=== PATIENT | male | born 1970 | race Caucasian/White ===

== ENCOUNTER 2016-12-28 08:00 | Inpatient (IN) ==
[2016-12-28 09:06] LABS: Bilirubin,Urine Small (Negative); Blood,Urine Trace (Negative); Clarity,Urine Clear (Clear); Color,Urine Dark Yellow (Yellow); Glucose,Urine (UA) Normal (Normal); Ketones,Urine 40 mg/dL (Negative); Leukocyte Esterase,Urine Negative (Negative); Nitrite,Urine Negative (Negative); PH,Urine 5.5 pH Units (5.0-8.0); Protein,Urine 30 mg/dL (Neg-Trace); Specific Gravity,Urine > 1.030 (1.010-1.025); Urobilinogen,Urine Normal (Normal)
[2016-12-28 09:08] LABS: Bacteria,Urine None Seen per hpf (None-Few); Hyaline Casts,Urine None Seen per lpf (None-Few); RBC,Urine 0-3 per hpf (0-3); Squamous Epithelial Cell,Urine Many per lpf (None-Few)
[2016-12-28 09:14] LABS: Amphetamine Screen,Urine Negative ng/mL (Cutoff=1000); Barbiturate Screen,Urine Negative ng/mL (Cutoff=200); Benzodiazepines Screen,Urine Negative ng/mL (Cutoff=200); Cannabinoid Screen,Urine Positive ng/mL (Cutoff = 50); Cocaine Screen,Urine Negative ng/mL (Cutoff= 300); Opiate Screen,Urine Negative ng/mL (Cutoff=300); Phencyclidine Screen,Urine Negative ng/mL (Cutoff=25)
[2016-12-28 09:22] LABS: Mucus,Urine Moderate (Few); Sperm,Urine Present
[2016-12-28 09:23] LABS: Basophils % 0.4 %; Eosinophils % 0.1 %; Hematocrit 46.4 % (37.5-50.1); Hemoglobin 15.6 g/dL (12.9-16.9); Immature Granulocytes % 0.5 % (0-4); Lymphocytes # 1.7 K/mcL (0.6-4.6); Lymphocytes % 15.5 %; Mean Corpuscular HGB Conc 33.6 g/dL (31.6-35.5); Mean Corpuscular Hemoglobin 30.2 pg (28.0-33.3); Mean Corpuscular Volume 89.7 fL (83.0-100.0); Mean Platelet Volume 10.4 fL (9.4-12.4); Monocytes # 0.7 K/mcL (0.0-1.3); Neutrophils # 8.6 K/mcL (1.6-8.9); Platelet Count 346 K/mcL (140-400); Red Blood Count 5.17 M/mcL (4.19-5.50); Red Cell Distribution Width 11.8 % (11.5-14.5); Segmented Neutrophils % 77.5 %
[2016-12-28 09:34] LABS: Alanine Aminotransferase 30 Units/L (0-55); Albumin 4.1 g/dL (3.5-5.0); Alkaline Phosphatase 100 Units/L (38-126); Aspartate Amino Transferase 22 Units/L (5-34); BUN/Creatinine Ratio 18 (6-26); Bilirubin,Direct 0.2 mg/dL (0.0-0.5); Bilirubin,Indirect 0.4 mg/dL (0.0-1.2); Bilirubin,Total 0.6 mg/dL (0.2-1.2); Blood Urea Nitrogen 17 mg/dL (8-26); Calcium 9.5 mg/dL (8.6-10.8); Carbon Dioxide 27 mEq/L (19-29); Chloride 101 mEq/L (98-109); Globulin 4.1 g/dL (2.4-3.5); Glucose 101 mg/dL (70-99); Osmolality,Calculated 288 (280-300); Potassium 4.4 mEq/L (3.5-4.5); Sodium 138 mEq/L (136-145); Total Protein 8.2 g/dL (6.0-8.3); eGFR For African Americans > 60 (> 60); eGFR For Non-African Americans > 60 (> 60)
[2016-12-28 09:42] LABS: Acetaminophen < 1.0 mcg/mL (10-30); Ethanol < 10 mg/dL (0-10); Salicylate < 5.0 mg/dL (15-30)
[2016-12-28] MEDS ORDERED: *HR* LORazepam 1 MG TABLET PO ONE (11:03)
--- NOTE | 2016-12-28 12:56 | Emergency Department Note ---
Disposition Clinical Impression: Acute anxiety, Paranoia Disposition: Admitted As Inpatient Condition: Fair Time of Disposition: 13:51 Psych HPI - General Chief Complaint: ED Psychiatric Symptoms Stated Complaint: Auditory / Visual Halucinations Time Seen by Provider: 12/28/16 08:49 Source: patient Mode of arrival: private vehicle Limitations: no limitations Nursing Notes Reviewed: Yes Vital Signs Reviewed: Yes - History of Present Illness HPI Narrative: 46-year-old male presents to the emergency department with paranoia, auditory and visual hallucinations. Patient states that he has been off his Xanax for approximately 4 days. Patient states that the remainder of his medication is in [facility]. Patient denies any recent head injury or trauma. Patient states that he feels as if people are watching him following him. He denies any current suicidal or homicidal ideation. He has no known drug allergies and denies any drug use. Pt complaint: altered mental status, anxiety Onset (ago): day(s) Duration: intermittent, getting worse Improves with: none Worsens with: none Alleged intoxication: No Associated Psychiatric Symptoms: auditory hallucinations, visual hallucinations , anxiety Associated symptoms: Reports: denies other symptoms Traumatic symptoms: denies traumatic injury Treatments prior to arrival: none Self harm or harm to others: denies thoughts of harming self/others, denies having a plan - Related Data Home Medications Medication Instructions Recorded Confirmed ALPRAZolam [Xanax 1 MG Tablet] 1 mg PO QID 12/28/16 12/28/16 Gabapentin [Neurontin] 800 mg PO TID 12/28/16 12/28/16 Quetiapine Fumarate [SEROquel] 100 - 200 mg PO HS 12/28/16 12/28/16 Sertraline [Zoloft] 100 mg PO DAILY 12/28/16 12/28/16 Allergies Allergy/AdvReac Type Severity Reaction Status Date / Time No Known Allergies Allergy Verified 01/19/15 13:30 All systems ED: reviewed and negative except as stated. Constitutional: Denies: fever, chills Cardiovascular: Denies: chest pain Respiratory: Denies: dyspnea Gastrointestinal: Denies: abdominal pain, nausea, vomiting Musculoskeletal: Denies: back pain, neck pain Integumentary: Denies: rash, abrasion, lesions Neurological: Denies: headache Psychiatric: Reports: anxiety, auditory hallucinations, visual hallucinations. Denies: depression, suicidal thoughts, homicidal thoughts Endocrine: Denies: fatigue Past Medical History - Past Medical History Attestation: Yes The following information was validated with the patient. Source: patient, nursing notes reviewed Medical history: Reports: no medical history Surgical history: Reports: cholecystectomy, orthopedic, other Psychiatric history: Reports: anxiety, depression - Social History Smoking Status: Smoker, status unknown Smokeless Tobacco Status: No Alcohol use: Reports: none, rarely Drug use: Reports: none Physical Exam - General Limitations: no limitations General appearance: alert, anxious - Head Head exam: atraumatic, normocephalic, normal inspection - Eye Eye exam: Present: normal appearance, PERRL - Neck Neck exam: Present: normal inspection, full ROM, trachea midline - Chest Chest inspection: Present: normal inspection, symmetric chest wall rise - Respiratory Respiratory exam: Present: normal lung sounds bilaterally. Absent: respiratory distress - Cardiovascular Cardiovascular exam: Present: regular rate, normal rhythm, normal heart sounds - Extremities Exam Extremities exam: Present: normal inspection, full ROM - Expanded Lower Extremity Exam Gait: observed and normal - Back Exam Back exam: Present: normal inspection, full ROM. Absent: tenderness - Neurological Exam Neurological exam: Present: alert, oriented X3 - Psychiatric Psychiatric exam: Present: anxious - Skin Skin exam: Present: warm, dry, intact, normal color Course Vital Signs Temperature 97.6 F 12/28/16 08:01 Pulse Rate 93 12/28/16 08:01 Respiratory Rate 20 12/28/16 08:01 Blood Pressure 123/79 12/28/16 08:01 O2 Sat by Pulse Oximetry 97 12/28/16 08:01 Temperature 97.6 F 12/28/16 08:01 Pulse Rate 66 12/28/16 18:48 Respiratory Rate 0 12/28/16 19:23 Blood Pressure 00/00 12/28/16 19:23 O2 Sat by Pulse Oximetry 96 12/28/16 18:48 Oxygen Delivery Oxygen Delivery Room Air Psych - Lab Data Lab results reviewed: Yes I reviewed the patient's lab results. Result diagrams: 12/28/16 09:15 12/28/16 09:15 Lab Results 12/28/16 12/28/16 12/28/16 Range/Units 08:30 08:30 09:15 WBC 11.1 (4.3-11.1) K/mcL RBC 5.17 (4.19-5.50) M/mcL Hgb 15.6 (12.9-16.9) g/dL Hct 46.4 (37.5-50.1) % MCV 89.7 (83.0-100.0) fL MCH 30.2 (28.0-33.3) pg MCHC 33.6 (31.6-35.5) g/dL RDW 11.8 (11.5-14.5) % Plt Count 346 (140-400) K/mcL MPV 10.4 (9.4-12.4) fL Immature Gran % 0.5 (0-4) % Seg Neutrophils % 77.5 % Lymphocytes % 15.5 % Monocytes % 6.0 % Eosinophils % 0.1 % Basophils % 0.4 % Neutrophils # 8.6 (1.6-8.9) K/mcL Lymphocytes # 1.7 (0.6-4.6) K/mcL Monocytes # 0.7 (0.0-1.3) K/mcL Eosinophils # 0.0 (0.0-0.6) K/mcL Basophils # 0.0 (0.0-0.2) K/mcL Sodium (136-145) mEq/L Potassium (3.5-4.5) mEq/L Chloride (98-109) mEq/L Carbon Dioxide (19-29) mEq/L BUN (8-26) mg/dL Creatinine (0.72-1.25) mg/dL Est GFR ( Amer) (> 60) Est GFR (Non-Af Amer) (> 60) BUN/Creatinine Ratio (6-26) Glucose (70-99) mg/dL Calculated Osmolality (280-300) Calcium (8.6-10.8) mg/dL Total Bilirubin (0.2-1.2) mg/dL Direct Bilirubin (0.0-0.5) mg/dL Indirect Bilirubin (0.0-1.2) mg/dL AST (5-34) Units/L ALT (0-55) Units/L Alkaline Phosphatase (38-126) Units/L Serum Total Protein (6.0-8.3) g/dL Albumin (3.5-5.0) g/dL Globulin (2.4-3.5) g/dL Albumin/Globulin Ratio (1.1-2.2) TSH (0.350-4.840) mcIU/mL Urine Color Dark Yellow (Yellow) Urine Clarity Clear (Clear) Urine pH 5.5 (5.0-8.0) pH Units Ur Specific [place] > 1.030 H (1.010-1.025) Urine Protein 30 H (Neg-Trace) mg/dL Urine Glucose (UA) Normal (Normal) mg/dL Urine Ketones 40 H (Negative) mg/dL Urine Blood Trace H (Negative) Urine Nitrite Negative (Negative) Urine Bilirubin Small H (Negative) Urine Urobilinogen Normal (Normal) mg/dL Ur Leukocyte Esterase Negative (Negative) Urine Microscopic RBC 0-3 (0-3) per hpf Urine Microscopic WBC 3-5 H (0-3) per hpf Ur Squamous Epith Cells Many H (None-Few) per lpf Urine Bacteria None Seen (None-Few) per hpf Hyaline Casts None Seen (None-Few) per lpf Urine Mucus Moderate H (Few) Urine Sperm Present Salicylates (15-30) mg/dL Urine Opiates Screen Negative (Xfggre=722) ng/mL Acetaminophen (10-30) mcg/mL Ur Barbiturates Screen Negative (Odofzh=805) ng/mL Ur Phencyclidine Scrn Negative (Cutoff=25) ng/mL Ur Amphetamines Screen Negative (Eabkub=9865) ng/mL U Benzodiazepines Scrn Negative (Mexvwg=235) ng/mL Urine Cocaine Screen Negative (Cutoff= 300) ng/mL U Marijuana (THC) Screen Positive H (Cutoff = 50) ng/mL Ethyl Alcohol (0-10) mg/dL 12/28/16 Range/Units 09:15 WBC (4.3-11.1) K/mcL RBC (4.19-5.50) M/mcL Hgb (12.9-16.9) g/dL Hct (37.5-50.1) % MCV (83.0-100.0) fL MCH (28.0-33.3) pg MCHC (31.6-35.5) g/dL RDW (11.5-14.5) % Plt Count (140-400) K/mcL MPV (9.4-12.4) fL Immature Gran % (0-4) % Seg Neutrophils % % Lymphocytes % % Monocytes % % Eosinophils % % Basophils % % Neutrophils # (1.6-8.9) K/mcL Lymphocytes # (0.6-4.6) K/mcL Monocytes # (0.0-1.3) K/mcL Eosinophils # (0.0-0.6) K/mcL Basophils # (0.0-0.2) K/mcL Sodium 138 (136-145) mEq/L Potassium 4.4 (3.5-4.5) mEq/L Chloride 101 (98-109) mEq/L Carbon Dioxide 27 (19-29) mEq/L BUN 17 (8-26) mg/dL Creatinine 0.95 (0.72-1.25) mg/dL Est GFR ( Amer) > 60 (> 60) Est GFR (Non-Af Amer) > 60 (> 60) BUN/Creatinine Ratio 18 (6-26) Glucose 101 H (70-99) mg/dL Calculated Osmolality 288 (280-300) Calcium 9.5 (8.6-10.8) mg/dL Total Bilirubin 0.6 (0.2-1.2) mg/dL Direct Bilirubin 0.2 (0.0-0.5) mg/dL Indirect Bilirubin 0.4 (0.0-1.2) mg/dL AST 22 (5-34) Units/L ALT 30 (0-55) Units/L Alkaline Phosphatase 100 (38-126) Units/L Serum Total Protein 8.2 (6.0-8.3) g/dL Albumin 4.1 (3.5-5.0) g/dL Globulin 4.1 H (2.4-3.5) g/dL Albumin/Globulin Ratio 1.0 L (1.1-2.2) TSH 1.580 (0.350-4.840) mcIU/mL Urine Color (Yellow) Urine Clarity (Clear) Urine pH (5.0-8.0) pH Units Ur Specific [place] (1.010-1.025) Urine Protein (Neg-Trace) mg/dL Urine Glucose (UA) (Normal) mg/dL Urine Ketones (Negative) mg/dL Urine Blood (Negative) Urine Nitrite (Negative) Urine Bilirubin (Negative) Urine Urobilinogen (Normal) mg/dL Ur Leukocyte Esterase (Negative) Urine Microscopic RBC (0-3) per hpf Urine Microscopic WBC (0-3) per hpf Ur Squamous Epith Cells (None-Few) per lpf Urine Bacteria (None-Few) per hpf Hyaline Casts (None-Few) per lpf Urine Mucus (Few) Urine Sperm Salicylates < 5.0 L (15-30) mg/dL Urine Opiates Screen (Clgbov=067) ng/mL Acetaminophen < 1.0 L (10-30) mcg/mL Ur Barbiturates Screen (Zpdvvr=570) ng/mL Ur Phencyclidine Scrn (Cutoff=25) ng/mL Ur Amphetamines Screen (Jbkuxh=3694) ng/mL U Benzodiazepines Scrn (Fredua=542) ng/mL Urine Cocaine Screen (Cutoff= 300) ng/mL U Marijuana (THC) Screen (Cutoff = 50) ng/mL Ethyl Alcohol < 10 (0-10) mg/dL Psychiatric Medical Clearance - Medical Clearance Checklist Medical History: No Social History Section defined Current Vitals: Last Vital Signs Temp 97.6 F 12/28/16 08:01 Pulse 66 12/28/16 18:48 Resp 0 12/28/16 19:23 BP 00/00 12/28/16 19:23 Pulse Ox 96 12/28/16 18:48 Psychiatric Lab Panel: Drug Levels and Toxicity 12/28/16 12/28/16 08:30 09:15 Urine Opiates Screen Negative Acetaminophen < 1.0 L Ur Barbiturates Screen Negative Ur Phencyclidine Scrn Negative Ur Amphetamines Screen Negative U Benzodiazepines Scrn Negative Urine Cocaine Screen Negative U Marijuana (THC) Screen Positive H Ethyl Alcohol < 10 Abnormal Labs: Abnormal lab results Glucose 101 mg/dL (70-99) H 12/28/16 09:15 Globulin 4.1 g/dL (2.4-3.5) H 12/28/16 09:15 Albumin/Globulin Ratio 1.0 (1.1-2.2) L 12/28/16 09:15 Ur Specific [place] > 1.030 (1.010-1.025) H 12/28/16 08:30 Urine Protein 30 mg/dL (Neg-Trace) H 12/28/16 08:30 Urine Ketones 40 mg/dL (Negative) H 12/28/16 08:30 Urine Blood Trace (Negative) H 12/28/16 08:30 Urine Bilirubin Small (Negative) H 12/28/16 08:30 Urine Microscopic WBC 3-5 per hpf (0-3) H 12/28/16 08:30 Ur Squamous Epith Cells Many per lpf (None-Few) H 12/28/16 08:30 Urine Mucus Moderate (Few) H 12/28/16 08:30 Salicylates < 5.0 mg/dL (15-30) L 12/28/16 09:15 Acetaminophen < 1.0 mcg/mL (10-30) L 12/28/16 09:15 U Marijuana (THC) Screen Positive ng/mL (Cutoff = 50) H 12/28/16 08:30 Attestation Statement - Attestation Attestation: I, Haris Person, examined this patient and my medical decision-making was reviewed with the [employer]/PA/Advanced Practice Nurse/Resident Physician. I agree with the documented findings, disposition and treatment plan as described except to the extent set forth below. 46-year-old male seen in the emergency department for auditory or visual hallucinations. Patient states he regularly travels to [place] for work and has left his benzodiazepine prescription in [place]. Family member states the patient started having hallucinations the day he came back from [place]. He denies fever, chills, nausea, vomiting, chest pain, headache. Patient was medically cleared and seen by behavioral health who recommended he be admitted to the hospital for further care and evaluation. Patient is comfortable with this plan.
[2016-12-28] MEDS ORDERED: ALPRAZolam 0.5 MG TABLET PO ONE ×2 (13:55→18:41)
[2016-12-28] MEDS ORDERED: *HR* LORazepam 2 MG/ML VIAL IM PRN (19:59)
[2016-12-28] MEDS ORDERED: hydrOXYzine pamoate 25 MG CAPSULE PO PRN (19:59)
[2016-12-28] MEDS ORDERED: Acetaminophen 325 MG TABLET PO PRN (19:59)
[2016-12-28] MEDS ORDERED: MOM Conc 10 ML UD.LIQ PO PRN (19:59)
[2016-12-28] MEDS ORDERED: Haloperidol Lactate 5 MG/ML VIAL IM PRN (19:59)
[2016-12-28] MEDS ORDERED: Mag Hydrox/Al Hydrox/Simeth 30 ML UDC PO PRN (19:59)
[2016-12-28] MEDS ORDERED: *HR* LORazepam 1 MG TABLET PO PRN (19:59)
[2016-12-28] MEDS ORDERED: traZODone 50 MG TABLET PO PRN (21:00)
[2016-12-28] MEDS: Gabapentin 400 MG CAPSULE PO SCH (22:17)
[2016-12-28] MEDS: clonazePAM 0.5 MG TABLET PO PRN (22:17)
[2016-12-29] MEDS: clonazePAM 0.5 MG TABLET PO PRN (08:33)
[2016-12-29] MEDS: Gabapentin 400 MG CAPSULE PO SCH ×3 (08:33→20:04)
--- NOTE | 2016-12-29 12:05 | Psychiatry History & Physical ---
Date of Encounter: 12/29/16 Time of Encounter: 11:40 History of Present Illness Patient Stated Chief Complaint: i just need my medicine and i am fine. Medicare Admission Attestation: For traditional Medicare patients the provided hospital inpatient services are reasonable and necessary and in the case of services not specified as inpatient -only under 42 CFR 419.22 (n), that they are appropriately provided as inpatient services in accordance 42 CFR 412.3. For Critical Access Hospital the patient may reasonably be expected to be discharged or transferred to a hospital within 96 hours after admission to the Critical Access Hospital. History of Present Illness: Mr. Dos Santos is a 46 year old male who came to ER with his after having brief episode of paranoia , aud/visual hallicunation. He has h/o Major Depressive Disorder and PTSD. he admits he has been withdrawing from xanax as left his bottle in [place] where he was for work , he states he takes xanax as prescribed and has not abused it, last taken was 4 days ago . states he has not taken zoloft for 1-2 months , it made me feel tired and not good. he also stopped seroquel as he feels that he took extra seroquel and it made him feel psychotic , he does not want to take zoloft or seroquel , he refused this morning. he is irritable initially today during session but then calmed down and was able to give history , states i am not going to hurt myself/others and i just need my medicine . i only want xanax and gabapentin, they help me the most. i reviewed note from out patient he was seen on 10/13/16 by [email or web address] Zeng. as per note he has states he has used more xanax upto 5 some days for anxiety. he has marital stress , his left him after 29 yrs for other person and she came back 2 weeks now and he took her back. he admits he has some anger , sad at times , he was tearful during session, denies any suicidal ideation , no thoughts to hurt others. denies any psychosis, no manic s/s, he has generalized anxiety and has h/o panic attacks. as per him he has been on xanax for 12 years now and also on zoloft for 10 years , now has side effects from zoloft. he agreed to take other antidepressant . Past Med Surg Social Fam HX - Past Medical History Medical history: no medical history - Past Surgical History Surgical History: cholecystectomy, orthopedic, other - Social History Smoking Status: Current every day smoker Smokeless Tobacco Status: No Alcohol use: none, rarely Drug use: none Occupational status: employed Current living situation: Home, With Family Activity Level: Independent ambulation Recent Out of Country Travel Within the Last 8 Weeks: No Exposure or Possible Exposure to Illness During Travel: No - Family History Mother Hx Family Medical Disorders: No Father Hx Family Cardiac Disorders: Yes ([place]) Medications & Allergies ALPRAZolam [Xanax 1 MG Tablet] 1 mg PO QID 12/28/16 [History] Gabapentin [Neurontin] 800 mg PO TID 12/28/16 [History] Quetiapine Fumarate [SEROquel] 100 - 200 mg PO HS 12/28/16 [History] Sertraline [Zoloft] 100 mg PO DAILY 12/28/16 [History] Allergies No Known Allergies Allergy (Verified 01/19/15 13:30) Review of Systems Constitutional: Denies: fever, chills, weakness, weight change Eyes: Denies: eye pain, vision change Ears, Nose, Throat: Denies: ear pain, throat pain, dental pain, hearing loss, congestion Cardiovascular: Denies: chest pain, palpitations, dyspnea on exertion Respiratory: Denies: cough, dyspnea, wheezes Gastrointestinal: Denies: abdominal pain, nausea, vomiting, diarrhea, constipation Genitourinary male: Denies: urgency, dysuria, frequency, genital lesions Genitourinary female: Denies: urgency, dysuria, frequency, abnormal menses, dyspareunia Musculoskeletal: Denies: joint swelling, joint pain Integumentary: Denies: rash, lesions, pruritus Neurological: Denies: headache, weakness, numbness, memory loss Psychiatric: Reports: depression, anxiety, panic attacks Endocrine: Denies: fatigue, heat or cold intolerance Hematologic/Lymphatic: Denies: easy bruising, lymphadenopathy Allergic/Immunologic: Denies: urticaria, itchy eyes Mental Status Exam Patient orientation: Yes Person, Yes Time, Yes Place Level of alertness: Alert Patient appearance: Appropriate Behavior: cooperative Psychomotor activity: Increased (was first irritable , then became calm and cooperative.) Eye contact: Maintains Eye Contact Mood description: Anxious, Irritable Affect description: congruent with mood Speech pattern: Normal rate Speech volume: Normal Thought process: Intact Thought content: Yes Intact Attention span: Capable of Focused Attention Patient reliability: Reliable Historian Intelligence estimate: Average Judgment: Fair Insight: Partial Exam - HEENT Head exam IM: Present: atraumatic, normal inspection, normocephalic Eye exam IM: Present: normal appearance ENT exam IM: Present: normal exam - Neurological Neurological exam IM: Present: alert, CN II-XII intact, normal gait, oriented X3 , no focal deficits - Skin Skin exam IM: Present: dry, warm Results - Vital Signs Vital signs: Temp Pulse Resp BP Pulse Ox 98.3 F 74 16 121/84 96 12/29/16 09:00 12/29/16 09:00 12/29/16 09:00 12/29/16 09:00 12/28/16 18:48 - Labs Labs: Laboratory Last Values WBC 11.1 K/mcL (4.3-11.1) 12/28/16 09:15 RBC 5.17 M/mcL (4.19-5.50) 12/28/16 09:15 Hgb 15.6 g/dL (12.9-16.9) 12/28/16 09:15 Hct 46.4 % (37.5-50.1) 12/28/16 09:15 MCV 89.7 fL (83.0-100.0) 12/28/16 09:15 MCH 30.2 pg (28.0-33.3) 12/28/16 09:15 MCHC 33.6 g/dL (31.6-35.5) 12/28/16 09:15 RDW 11.8 % (11.5-14.5) 12/28/16 09:15 Plt Count 346 K/mcL (140-400) 12/28/16 09:15 MPV 10.4 fL (9.4-12.4) 12/28/16 09:15 Immature Gran % 0.5 % (0-4) 12/28/16 09:15 Seg Neutrophils % 77.5 % 12/28/16 09:15 Lymphocytes % 15.5 % 12/28/16 09:15 Monocytes % 6.0 % 12/28/16 09:15 Eosinophils % 0.1 % 12/28/16 09:15 Basophils % 0.4 % 12/28/16 09:15 Neutrophils # 8.6 K/mcL (1.6-8.9) 12/28/16 09:15 Lymphocytes # 1.7 K/mcL (0.6-4.6) 12/28/16 09:15 Monocytes # 0.7 K/mcL (0.0-1.3) 12/28/16 09:15 Eosinophils # 0.0 K/mcL (0.0-0.6) 12/28/16 09:15 Basophils # 0.0 K/mcL (0.0-0.2) 12/28/16 09:15 Sodium 138 mEq/L (136-145) 12/28/16 09:15 Potassium 4.4 mEq/L (3.5-4.5) 12/28/16 09:15 Chloride 101 mEq/L (98-109) 12/28/16 09:15 Carbon Dioxide 27 mEq/L (19-29) 12/28/16 09:15 BUN 17 mg/dL (8-26) 12/28/16 09:15 Creatinine 0.95 mg/dL (0.72-1.25) 12/28/16 09:15 Est GFR ( Amer) > 60 (> 60) 12/28/16 09:15 Est GFR (Non-Af Amer) > 60 (> 60) 12/28/16 09:15 BUN/Creatinine Ratio 18 (6-26) 12/28/16 09:15 Glucose 101 mg/dL (70-99) H 12/28/16 09:15 Calculated Osmolality 288 (280-300) 12/28/16 09:15 Calcium 9.5 mg/dL (8.6-10.8) 12/28/16 09:15 Total Bilirubin 0.6 mg/dL (0.2-1.2) 12/28/16 09:15 Direct Bilirubin 0.2 mg/dL (0.0-0.5) 12/28/16 09:15 Indirect Bilirubin 0.4 mg/dL (0.0-1.2) 12/28/16 09:15 AST 22 Units/L (5-34) 12/28/16 09:15 ALT 30 Units/L (0-55) 12/28/16 09:15 Alkaline Phosphatase 100 Units/L (38-126) 12/28/16 09:15 Serum Total Protein 8.2 g/dL (6.0-8.3) 12/28/16 09:15 Albumin 4.1 g/dL (3.5-5.0) 12/28/16 09:15 Globulin 4.1 g/dL (2.4-3.5) H 12/28/16 09:15 Albumin/Globulin Ratio 1.0 (1.1-2.2) L 12/28/16 09:15 TSH 1.580 mcIU/mL (0.350-4.840) 12/28/16 09:15 Urine Color Dark Yellow (Yellow) 12/28/16 08:30 Urine Clarity Clear (Clear) 12/28/16 08:30 Urine pH 5.5 pH Units (5.0-8.0) 12/28/16 08:30 Ur Specific [place] > 1.030 (1.010-1.025) H 12/28/16 08:30 Urine Protein 30 mg/dL (Neg-Trace) H 12/28/16 08:30 Urine Glucose (UA) Normal mg/dL (Normal) 12/28/16 08:30 Urine Ketones 40 mg/dL (Negative) H 12/28/16 08:30 Urine Blood Trace (Negative) H 12/28/16 08:30 Urine Nitrite Negative (Negative) 12/28/16 08:30 Urine Bilirubin Small (Negative) H 12/28/16 08:30 Urine Urobilinogen Normal mg/dL (Normal) 12/28/16 08:30 Ur Leukocyte Esterase Negative (Negative) 12/28/16 08:30 Urine Microscopic RBC 0-3 per hpf (0-3) 12/28/16 08:30 Urine Microscopic WBC 3-5 per hpf (0-3) H 12/28/16 08:30 Ur Squamous Epith Cells Many per lpf (None-Few) H 12/28/16 08:30 Urine Bacteria None Seen per hpf (None-Few) 12/28/16 08:30 Hyaline Casts None Seen per lpf (None-Few) 12/28/16 08:30 Urine Mucus Moderate (Few) H 12/28/16 08:30 Urine Sperm Present 12/28/16 08:30 Salicylates < 5.0 mg/dL (15-30) L 12/28/16 09:15 Urine Opiates Screen Negative ng/mL (Uoosic=610) 12/28/16 08:30 Acetaminophen < 1.0 mcg/mL (10-30) L 12/28/16 09:15 Ur Barbiturates Screen Negative ng/mL (Zbzirl=671) 12/28/16 08:30 Ur Phencyclidine Scrn Negative ng/mL (Cutoff=25) 12/28/16 08:30 Ur Amphetamines Screen Negative ng/mL (Ykdwga=9058) 12/28/16 08:30 U Benzodiazepines Scrn Negative ng/mL (Wjiqtw=728) 12/28/16 08:30 Urine Cocaine Screen Negative ng/mL (Cutoff= 300) 12/28/16 08:30 U Marijuana (THC) Screen Positive ng/mL (Cutoff = 50) H 12/28/16 08:30 Ethyl Alcohol < 10 mg/dL (0-10) 12/28/16 09:15 Assessment and Plan (1) Major depression Current visit: Yes Status: Acute Plan: Admit inpatient for safety and stabilization, Close observation, Encourage participation in unit milieu, Group Therapy, Monitor sleep, Monitor appetite, Family/Supportive other meeting Risks, benefits, side effects, alternatives discussed w/pt: Yes Patient agreeable to treatment: Yes Plans for Post Hospital Care: Home Qualifiers: Major depression recurrence: recurrent Active/Remission status: currently active Major depression episode severity: moderate Qualified Code(s): F33.1 - Major depressive disorder, recurrent, moderate (2) Generalized anxiety disorder Current visit: Yes Status: Chronic Plan: Close observation, Encourage participation in unit milieu, Group Therapy, Monitor appetite Risks, benefits, side effects, alternatives discussed w/pt: Yes Patient agreeable to treatment: Yes Plans for Post Hospital Care: Home (3) Panic disorder Current visit: Yes Status: Acute Plan: Admit inpatient for safety and stabilization, Close observation, Encourage participation in unit milieu, Group Therapy, Monitor sleep, Monitor appetite, Family/Supportive other meeting Risks, benefits, side effects, alternatives discussed w/pt: Yes Patient agreeable to treatment: Yes Plans for Post Hospital Care: Home (will incease klonopin to 1 mg tid , xanax dc.)
[2016-12-29] MEDS: clonazePAM 1 MG TABLET PO SCH ×2 (15:13→20:04)
[2016-12-30] MEDS: clonazePAM 1 MG TABLET PO SCH (08:37)
[2016-12-30] MEDS: Gabapentin 400 MG CAPSULE PO SCH (08:37)
--- NOTE | 2016-12-30 08:46 | Discharge Summary ---
Date of Encounter: 12/30/16 Time of Encounter: 08:41 Diagnosis - Discharge Diagnosis (1) Major depression Status: Acute Qualifiers: Major depression recurrence: recurrent Active/Remission status: currently active Major depression episode severity: moderate Qualified Code(s): F33.1 - Major depressive disorder, recurrent, moderate (2) Generalized anxiety disorder Status: Chronic (3) Panic disorder Status: Acute Medications - Discharge Medications Prescriptions: clonazePAM [Klonopin] 1 mg PO TID #60 tab DULoxetine [Cymbalta] 30 mg PO DAILY #30 Gabapentin [Neurontin] 800 mg PO TID #90 DULoxetine [Cymbalta] 30 mg PO DAILY #30 12/30/16 [Rx] Gabapentin [Neurontin] 800 mg PO TID #90 12/30/16 [Rx] clonazePAM [Klonopin] 1 mg PO TID #60 tab 12/30/16 [Rx] Allergies No Known Allergies Allergy (Verified 01/19/15 13:30) Provider Date of admission: 12/28/16 19:17 Primary care physician: PCP NONE Assessment and Plan - Patient/Caregiver Discharge Instructions Diet: regular diet - Follow up Plan Follow up with: [facility] [Outside] - 01/13/17 1:30 pm (The above appointment is with Soniya Garay, for outpatient psychiatric assessment and medication management services. Please arrive 10 minutes early to all appointments to complete the check-in process. Please bring your insurance card (or [facility]) and photo ID. If you are unable to keep this appointment, 24 hour business notice of cancellation is expected. The above appointment(s) reflects first availability. You may contact the office regularly to check for cancellations that may allow you to be seen sooner. ) Overall status at discharge: Stable Disposition: Home, Self-Care Hospital Course Hospital course: Mr. Dos Santos is a 46 year old male who presented to ER with his as he had been off xanax for 4 days takes 4-5 mg / day as left in hotel his bottle , he took extra seroquel and apparently had hallucinations and severe anxiety , he had no suicidal ideas or thoughts to hurt others. He is compliant with treatment plan and during his course of treatment he agreed to be switched to klonopin and cymbalta , as he has stopped zoloft and seroquel and does not want to take them because of side effects. at present on discharge no psychosis, no manic, no depression , some anxiety and preoccupied with not missing more work. pt will be dc home , will call pharmacy and dc prescription of xanax as changed to klonopin . he has appointment on 01/13/17 with [facility] . - Time Spent with Patient Total time spent providing and/or coordinating discharge services: Quality - Multiple Antipsychotics Patient discharged on 2 or more antipsychotic medications: No Procedures - Procedures Procedures: Medication Management, Crisis Stabilization, Supportive Therapy, Group Therapy, Psychoeducational Therapy Mental Status Exam - Mental Status Exam Patient orientation: Yes Person, Yes Time, Yes Place Level of alertness: Alert Patient appearance: Appropriate Behavior: cooperative Psychomotor activity: Normal Eye contact: Maintains Eye Contact Mood description: Euthymic/stable Affect description: congruent with mood Speech pattern: Normal rate Speech Volume: Normal Thought process: Intact Thought Content: Yes Intact Judgment: Good Insight: Full
[2016-12-30 10:05] VITALS: BP 119/77
== END 2016-12-30 10:36 | disposition home or self-care (01) | DRG 751 ==
LOC: EMEROO 08:00 → 1ANU 19:17
PROVIDERS: ADMIT Psychiatry & Neurology Psychiatry; ATTEND Psychiatry & Neurology Psychiatry

== ENCOUNTER 2018-04-10 02:50 | Inpatient (IN) ==
[2018-04-10] MEDS ORDERED: ALPRAZolam 1 MG TABLET PO ONE (03:29)
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
[2018-04-10] MEDS ORDERED: 0.9 % Sodium Chloride 1,000 ML IVC ONE (04:22)
[2018-04-10] MEDS ORDERED: Multivit/Ca/Min/Fe/FA 1 TAB TABLET PO ONE (04:45)
[2018-04-10 05:04] LABS: Basophils % 0.2 %; Eosinophils % 0.2 %; Hematocrit 40.4 % (37.5-50.1); Hemoglobin 14.2 g/dL (12.9-16.9); Immature Granulocytes % 0.5 % (0-4); Lymphocytes # 2.4 K/mcL (0.6-4.6); Lymphocytes % 18.6 %; Mean Corpuscular HGB Conc 35.1 g/dL (31.6-35.5); Mean Corpuscular Hemoglobin 30.2 pg (28.0-33.3); Mean Platelet Volume 10.1 fL (9.4-12.4); Monocytes # 1.1 K/mcL (0.0-1.3); Monocytes % 8.6 %; Neutrophils # 9.4 K/mcL (1.6-8.9); Platelet Count 340 K/mcL (140-400); Red Cell Distribution Width 12.3 % (11.5-14.5); Segmented Neutrophils % 71.9 %
[2018-04-10] MEDS ORDERED: Thiamine (B-1) 100 MG in 0.9 % Sodium Chloride 50 ML IVPB ONE (05:11)
[2018-04-10] MEDS: Thiamine (B-1) 100 MG in 0.9 % Sodium Chloride 50 ML IVPB SCH ×2 (05:24→08:24)
[2018-04-10 05:30] LABS: Acetaminophen < 10 mcg/mL (10-20); Alanine Aminotransferase 31 Units/L (7-52); Albumin 4.4 g/dL (3.5-5.7); Albumin/Globulin Ratio 1.6 (1.1-2.2); Alkaline Phosphatase 77 Units/L (34-104); Aspartate Amino Transferase 27 Units/L (13-39); BUN/Creatinine Ratio 26 (6-26); Bilirubin,Direct 0.1 mg/dL (0.0-0.2); Bilirubin,Indirect 0.5 mg/dL (0.0-1.2); Bilirubin,Total 0.6 mg/dL (0.3-1.0); Blood Urea Nitrogen 18 mg/dL (6-20); Calcium 9.1 mg/dL (8.6-10.3); Carbon Dioxide 28 mEq/L (23-29); Chloride 99 mEq/L (98-107); Ethanol < 10 mg/dL (Less than 10); Globulin 2.7 g/dL (2.4-3.5); Glucose 115 mg/dL (70-105); Osmolality,Calculated 285 (280-300); Potassium 3.2 mEq/L (3.5-5.1); Salicylate < 2.5 mg/dL (15.0-30.0); Sodium 136 mEq/L (136-145); Total Protein 7.1 g/dL (6.4-8.9); eGFR For Non-African Americans > 60 (> 60)
[2018-04-10] MEDS ORDERED: diazePAM 10 MG TABLET PO ONE (05:32)
[2018-04-10 05:39] LABS: Thyroid Stimulating Hormone 0.959 mcIU/mL (0.340-5.600)
[2018-04-10] MEDS ORDERED: Acetaminophen 325 MG TABLET PO PRN (08:01)
[2018-04-10] MEDS ORDERED: Naloxone 0.4 MG/ML INJ IVP PRN (08:01)
[2018-04-10] MEDS ORDERED: diazePAM 10 MG TABLET PO PRN ×2 (08:03→10:37)
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
[2018-04-10] MEDS ORDERED: Ibuprofen 800 MG TABLET PO PRN (09:41)
[2018-04-10] MEDS: Gabapentin 400 MG CAPSULE PO SCH ×2 (14:24→20:02)
[2018-04-10] MEDS: hydrOXYzine pamoate 25 MG CAPSULE PO SCH ×2 (14:24→20:02)
[2018-04-11 04:20] LABS: Basophils % 0.2 %; Eosinophils # 0.1 K/mcL (0.0-0.6); Hematocrit 39.2 % (37.5-50.1); Hemoglobin 13.5 g/dL (12.9-16.9); Immature Granulocytes % 0.4 % (0-4); Lymphocytes % 34.9 %; Mean Corpuscular HGB Conc 34.4 g/dL (31.6-35.5); Mean Corpuscular Hemoglobin 30.4 pg (28.0-33.3); Mean Corpuscular Volume 88.3 fL (83.0-100.0); Mean Platelet Volume 10.1 fL (9.4-12.4); Monocytes # 0.9 K/mcL (0.0-1.3); Monocytes % 7.9 %; Neutrophils # 6.4 K/mcL (1.6-8.9); Platelet Count 329 K/mcL (140-400); Red Blood Count 4.44 M/mcL (4.19-5.50); Red Cell Distribution Width 12.7 % (11.5-14.5); Segmented Neutrophils % 55.6 %
[2018-04-11] MEDS ORDERED: ALPRAZolam 1 MG TABLET PO SCH (09:30)
[2018-04-11] MEDS: Thiamine (B-1) 100 MG in 0.9 % Sodium Chloride 50 ML IVPB SCH (09:42)
[2018-04-11] MEDS: hydrOXYzine pamoate 25 MG CAPSULE PO SCH ×3 (09:43→22:09)
[2018-04-11] MEDS: Gabapentin 400 MG CAPSULE PO SCH ×3 (09:43→22:09)
--- NOTE | 2018-04-11 11:13 | Internal Med Progress Note ---
Hospitalist Progress Note - Encounter Date of Encounter: 04/11/18 Time of Encounter: 11:13 - Subjective Interval History: Patient was seen and examined earlier this a.m. at bedside. Currently patient appears agitated-states he has been experiencing auditory hallucinations. He has a history of benzodiazepine use apparently he has not been taking his Xanax at home for some time. I did discuss with with pharmacy as well as psychiatry concerning benzodiazepine withdrawal monitoring. We will continue with Valium- patient will require closer monitoring since he is high risk for seizure and respiratory failure. He will require more than 2 days admission for tapering of Valium and will be placed as inpatient status - Exam Vitals: Temp Pulse Resp BP Pulse Ox 98.0 F 60 18 100/56 96 04/11/18 07:08 04/11/18 07:08 04/11/18 07:08 04/11/18 07:08 04/11/18 07:08 Exam: General appearance: Present: A&O X 3, appears anxious and agitated Exam: - Head Head exam: Present: atraumatic, normocephalic - Eye Eye exam: Present: PERRL, conjuntiva pink, sclera anicteric Pupils: Present: PERRL - Neck Neck exam general surgery: Present: supple, trachea midline. Absent: lymphadenopathy - Respiratory Respiratory exam: Present: CTAB. Absent: accessory muscle use, rales, rhonchi, wheezes - Cardiovascular Cardiovascular exam: Present: RRR, +S1, +S2. Absent: diastolic murmur, gallop, rubs, systolic murmur - GI/Abdominal GI/Abdominal exam: Present: normal bowel sounds, soft, no peritoneal signs. Absent: distended, tenderness - Extremities Exam Extremities exam: Present: warm, radial pulses palpable and symmetrical. Absent: calf tenderness, cyanotic, pedal edema - Neurological Exam Neurological exam: Present: CN II-XII intact, oriented X3, no focal deficits. Absent: pronater drift, facial droop, speech deficit - Psychiatric Psychiatric exam: Present: anxious-flight of ideas Additional comments: - Assessment and Plan (1) Major depression Current Visit: Yes Status: Chronic Assessment and Plan: continue home meds, after confirmation 04/11/2018 Continue with Cymbalta and Seroquel (2) Bipolar disorder Current Visit: Yes Status: Chronic Assessment and Plan: psych eval requested continue home meds 04/11/2018 We will continue with home medications-behavior most likely related to benzodiazepine withdrawal (3) Benzodiazepine withdrawal with delirium Current Visit: Yes Status: Acute Assessment and Plan: continue management per psych recommendation 04/11/2018 it appears the patient has history of Xanax use however he has not had his prescription filled since 03/15/2018. Suspect benzodiazepine withdrawal-tox screen completed ER with no benzo results I did curbside psychiatry as well as pharmacy- patient will continue with benzo withdrawal Valium taper. He was originally given 20 mg of Valium in the ER which did sedate him for approximately 8 hours and then he was given another 20 mg of Valium overnight and again sedated the patient. According to Pharmacy recommending Valium 5 mg 4 times a day with assessment prior to administration as well as after administration for any sedation depress respiratory rate tr emors or seizure activity patient will also receive thiamine 2.5 when necessary for any agitation or withdrawal symptoms pharmacy recommending reduction of Valium 5-10% weekly as tolerated as an outpatient We will monitor for any seizure activity-Ativan as needed for seizure activity- seizure precautions Continuous pulse ox monitoring (4) Tobacco abuse Current Visit: Yes Status: Chronic Assessment and Plan: Consulting physician Declines NRT 04/11 Nicotine patch as needed Encouraged smoking cessation DVT Prophylaxis: lovenox - Time Spent with Patient Total time spent is greater than 50% in coordination of care (as documented) at patient's floor/unit and/or counseling patient: Internal Medicine: Result - Labs CBC & Chem 7: 04/11/18 03:45 04/11/18 11:27 Labs: Short CBC 04/11/18 Range/Units 03:45 WBC 11.6 H (4.3-11.1) K/mcL Hgb 13.5 (12.9-16.9) g/dL Hct 39.2 (37.5-50.1) % Plt Count 329 (140-400) K/mcL Neutrophils # 6.4 (1.6-8.9) K/mcL Consult Discharge Plan - Plan Referrals: NONE,PCP [Primary Care Provider] - (1) Major depression Qualifiers: Major depression recurrence: recurrent Active/Remission status: currently active Major depression episode severity: moderate Qualified Code(s): F33.1 - Major depressive disorder, recurrent, moderate (2) Bipolar disorder Qualifiers: Active/Remission status: remission status unspecified Qualified Code(s): F31.9 - Bipolar disorder, unspecified
[2018-04-11 12:08] LABS: BUN/Creatinine Ratio 15 (6-26); Blood Urea Nitrogen 11 mg/dL (6-20); Calcium 8.7 mg/dL (8.6-10.3); Carbon Dioxide 29 mEq/L (23-29); Chloride 105 mEq/L (98-107); Glucose 115 mg/dL (70-105); Osmolality,Calculated 290 (280-300); Potassium 3.7 mEq/L (3.5-5.1); Sodium 140 mEq/L (136-145); eGFR For Non-African Americans > 60 (> 60)
[2018-04-11] MEDS ORDERED: diazePAM 2 MG TABLET PO PRN (14:49)
[2018-04-11] MEDS ORDERED: *HR* LORazepam 2 MG/ML VIAL IVP PRN (14:56)
[2018-04-11] MEDS: diazePAM 5 MG TABLET PO SCH ×2 (17:15→22:10)
[2018-04-11] MEDS ORDERED: diazePAM 5 MG TABLET PO PRN (17:37)
[2018-04-12] MEDS ORDERED: *HR* Enoxaparin 40 MG/0.4 ML SYRINGE SQ SCH (07:00)
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
[2018-04-12] MEDS: hydrOXYzine pamoate 25 MG CAPSULE PO SCH (09:21)
[2018-04-12] MEDS: diazePAM 5 MG TABLET PO SCH (09:21)
[2018-04-12] MEDS: Gabapentin 400 MG CAPSULE PO SCH (09:22)
[2018-04-12] MEDS: Thiamine (B-1) 100 MG in 0.9 % Sodium Chloride 50 ML IVPB SCH (10:15)
[2018-04-12 10:47] VITALS: BP 118/83
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
[2018-04-12] MEDS ORDERED: diazePAM 5 MG TABLET PO SCH (15:00)
[2018-04-13] MEDS ORDERED: diazePAM 5 MG TABLET PO SCH (09:00)
== END 2018-04-12 14:26 | disposition home or self-care (01) | DRG 776 ==
LOC: EMEROOARM 02:50 → 3BNU 02:50 → 2NENU 04-11 15:19 → SUATTDRO 04-11 15:57
PROVIDERS: ADMIT Internal Medicine; ATTEND Internal Medicine

== ENCOUNTER 2022-01-17 18:34 | Observation (INO) ==
[2022-01-17] MEDS ORDERED: Ketorolac 30 MG/ML VIAL IVP ONE (22:49)
[2022-01-17] MEDS ORDERED: 0.9 % Sodium Chloride 500 ML IVC ONE (22:49)
[2022-01-17] MEDS ORDERED: Aspirin 325 MG TABLET PO ONE (22:50)
[2022-01-17 23:09] LABS: Basophils # 0.1 K/mcL (0.0-0.2); Basophils % 0.8 %; Eosinophils # 0.4 K/mcL (0.0-0.6); Eosinophils % 4.2 %; Hematocrit 43.1 % (37.5-50.1); Hemoglobin 14.6 g/dL (12.9-16.9); Immature Granulocytes % 0.7 % (0-4); Lymphocytes # 3.4 K/mcL (0.6-4.6); Lymphocytes % 37.8 %; Mean Corpuscular HGB Conc 33.9 g/dL (31.6-35.5); Mean Corpuscular Hemoglobin 30.8 pg (28.0-33.3); Mean Corpuscular Volume 90.9 fL (83.0-100.0); Mean Platelet Volume 10.4 fL (9.4-12.4); Monocytes # 0.7 K/mcL (0.0-1.3); Neutrophils # 4.4 K/mcL (1.6-8.9); Platelet Count 296 K/mcL (140-400); Red Blood Count 4.74 M/mcL (4.19-5.50); Red Cell Distribution Width 11.9 % (11.5-14.5); Segmented Neutrophils % 48.5 %
[2022-01-17 23:29] LABS: BUN/Creatinine Ratio 12 (6-26); Blood Urea Nitrogen 11 mg/dL (6-20); Calcium 8.8 mg/dL (8.6-10.3); Carbon Dioxide 29 mEq/L (23-29); Chloride 103 mEq/L (98-107); Glucose 92 mg/dL (70-105); Osmolality,Calculated 285 (280-300); Potassium 4.3 mEq/L (3.5-5.1); Sodium 138 mEq/L (136-145)
[2022-01-17 23:30] LABS: Troponin I < 0.03 ng/mL (< 0.04)
[2022-01-18] MEDS ORDERED: Naloxone 0.4 MG/ML INJ IVP PRN (00:03)
[2022-01-18] MEDS ORDERED: Ondansetron 4 MG/2 ML VIAL IVP PRN (00:03)
[2022-01-18] MEDS ORDERED: Acetaminophen 325 MG TABLET PO PRN (00:03)
[2022-01-18] MEDS ORDERED: Regadenoson 0.4 MG/5 ML SYRINGE IVP ONE (06:38)
[2022-01-18 08:50] LABS: Basophils # 0.1 K/mcL (0.0-0.2); Basophils % 0.7 %; Eosinophils # 0.2 K/mcL (0.0-0.6); Eosinophils % 3.1 %; Hematocrit 42.3 % (37.5-50.1); Hemoglobin 14.4 g/dL (12.9-16.9); Immature Granulocytes % 0.6 % (0-4); Lymphocytes # 1.8 K/mcL (0.6-4.6); Lymphocytes % 25.9 %; Mean Corpuscular Hemoglobin 30.8 pg (28.0-33.3); Mean Corpuscular Volume 90.6 fL (83.0-100.0); Mean Platelet Volume 10.5 fL (9.4-12.4); Monocytes # 0.5 K/mcL (0.0-1.3); Monocytes % 6.7 %; Neutrophils # 4.4 K/mcL (1.6-8.9); Platelet Count 285 K/mcL (140-400); Red Blood Count 4.67 M/mcL (4.19-5.50); Red Cell Distribution Width 11.9 % (11.5-14.5)
[2022-01-18 09:25] LABS: BUN/Creatinine Ratio 12 (6-26); Blood Urea Nitrogen 11 mg/dL (6-20); Calcium 8.6 mg/dL (8.6-10.3); Carbon Dioxide 29 mEq/L (23-29); Chloride 104 mEq/L (98-107); Glucose 94 mg/dL (70-105); Magnesium 2.3 mg/dL (1.6-2.6); Osmolality,Calculated 283 (280-300); Potassium 4.6 mEq/L (3.5-5.1); Sodium 137 mEq/L (136-145); Thyroid Stimulating Hormone 1.166 mcIU/mL (0.340-5.600); Troponin I < 0.03 ng/mL (< 0.04)
[2022-01-18 10:44] LABS: Bilirubin,Urine Negative (Negative); Blood,Urine Negative (Negative); Clarity,Urine Clear (Clear); Color,Urine Light-Yellow (Yellow); Glucose,Urine (UA) Normal (Normal); Ketones,Urine Negative (Negative); Leukocyte Esterase,Urine Negative (Negative); Nitrite,Urine Negative (Negative); PH,Urine 6.5 pH Units (5.0-8.0); Protein,Urine Negative (Neg-Trace); Specific Gravity,Urine 1.018 (1.010-1.025); Urobilinogen,Urine Normal (Normal)
[2022-01-18 12:53] VITALS: BP 123/77; PULSE 64; TEMP 97.8; O2SAT 98
== END 2022-01-18 14:22 | disposition home or self-care (01) ==
LOC: 3BNU 18:34 → EMEROOARM 18:34 → 3BNU 01-18 13:05
PROVIDERS: ADMIT Internal Medicine; ATTEND Internal Medicine